=== PATIENT | female | born 1980 | race Hispanic/Latino ===

== ENCOUNTER 2017-05-18 10:33 | Emergency (ER) | payer MEDICAID ==
[2017-05-18 10:34] VITALS: BMI 24.5
[2017-05-18 11:41] VITALS: O2SAT 98
[2017-05-18] MEDS ORDERED: Sodium Chloride 0.9% 1,000 ML IV ONE (12:30)
--- NOTE | 2017-05-18 13:40 | ED PDOC ---
HPI: CCC, URI, Sore Throat Time Seen by Provider: 05/18/17 11:08 Chief Complaint (Nursing): Flu-like Symptoms Chief Complaint (Provider): Flu-like symptoms History Per: Patient History/Exam Limitations: no limitations Onset/Duration Of Symptoms: Days (x4) Current Symptoms Are (Timing): Still Present Associated Symptoms: Fever, Cough, Vomiting, Diarrhea, Other (runny nose) Ear Symptoms: Bilateral: None Additional Complaint(s): Nisha Sepulveda is a 36 year old female, with a past medical history of rheumatoid arthritis and asthma, who presents to the emergency department complaining of cough, runny nose, nausea, vomiting, and diarrhea onset for x4 days, and fever onset for x2 days. Patient had a max temperature of 102. No further medical complaints. PMD: None provided. Past Medical History Reviewed: Historical Data, Nursing Documentation, Vital Signs Vital Signs: Last Vital Signs Temp 97.9 F 05/18/17 15:31 Pulse 78 05/18/17 15:31 Resp 19 05/18/17 15:31 BP 126/78 05/18/17 15:31 Pulse Ox 98 05/18/17 15:31 - Medical History PMH: Asthma, Rheumatoid Arthritis Denies: Chronic Kidney Disease - Surgical History Surgical History: No Surg Hx - Family History Family History: States: Unknown Family Hx - Social History Current smoker - smoking cessation education provided: No Alcohol: None Drugs: Denies - Immunization History Hx Tetanus Toxoid Vaccination: No (not sure of last tetanus) - Home Medications Home Medications: Ambulatory Orders Medication Instructions Recorded Hydroxychloroquine Sulfate 200 mg PO DAILY 02/13/15 [Plaquenil] Oxycodone HCl/Acetaminophen 1 tab PO Q4 PRN 02/13/15 [Percocet 325 mg-5 mg] Prednisone 5 mg PO DAILY 02/13/15 Oxycodone HCl/Acetaminophen 1 tab PO Q6 PRN #10 tab 04/30/15 [Percocet 325 mg-5 mg] Prednisone 10 mg PO ASDIR #21 tablet 09/30/15 Fluticasone Nasal [Flonase] 2 spr NS DAILY #1 bottle 12/11/15 Metoclopramide HCl [Reglan] 10 mg PO QID PRN #30 tablet 04/12/16 Multivit/Folic Acid/I 1 tab PO DAILY #30 tab 04/12/16 [ Plus] Doxylamine/Pyridoxine HCl (B6) 2 tab PO HS #10 tablet. 06/08/16 [Jonny Briggs 10-10 mg Tablet] Oseltamivir Phosphate [Tamiflu] 75 mg PO BID #10 capsule 05/18/17 - Allergies Allergies/Adverse Reactions: Allergies Allergy/AdvReac Type Severity Reaction Status Date / Time No Known Allergies Allergy Verified 04/12/16 08:12 Review of Systems ROS Statement: Except As Marked, All Systems Reviewed And Found Negative Constitutional: Positive for: Fever ENT: Positive for: Nose Discharge Respiratory: Positive for: Cough Gastrointestinal: Positive for: Nausea, Vomiting, Diarrhea Physical Exam - Reviewed Nursing Documentation Reviewed: Yes Vital Signs Reviewed: Yes - Physical Exam Appears: Positive for: Non-toxic Head Exam: Positive for: ATRAUMATIC, NORMAL INSPECTION, NORMOCEPHALIC Skin: Positive for: Normal Color, Warm, Dry Eye Exam: Positive for: Normal appearance, EOMI, PERRL ENT: Positive for: Nasal Congestion, Other (throat is normal) Neck: Positive for: Painless ROM, Supple Cardiovascular/Chest: Positive for: Regular Rate, Rhythm. Negative for: Murmur Respiratory: Positive for: Normal Breath Sounds. Negative for: Respiratory Distress Gastrointestinal/Abdominal: Positive for: Normal Exam, Soft. Negative for: Tenderness, Guarding, Rebound Back: Positive for: Normal Inspection. Negative for: L CVA Tenderness, R CVA Tenderness, Vertebral Tenderness Extremity: Positive for: Normal ROM. Negative for: Deformity, Swelling Neurologic/Psych: Positive for: Alert, Oriented - ECG O2 Sat by Pulse Oximetry: 98 (RA) Pulse Ox Interpretation: Normal Medical Decision Making Medical Decision Making: Initial Impression: Viral syndrome, gastroenteritis Initial Plan: --Tylenol 325 mg tab 650 mg PO --Sodium Chloride 1,000 ml IV 999 mls/hr --Zofran Inj 4 mg IVP --Rapid Flu A/B [Influenza] --reevaluation 15:31 - Patient was hydrated in the ED with 2 L NS. She is tolerating PO fluids. She tested positive for Influenza and has a h/o RA with current meds so will tx with Tamiflu. Advised to follow up with primary care doctor in 1-2 days and to return to the ED if symptoms worsen or any other concern. Scribe Attestation: Documented by Toy Arciniega, acting as a scribe for Eliseo Lozada MD Provider Scribe Attestation: All medical record entries made by the Scribe were at my direction and personally dictated by me. I have reviewed the chart and agree that the record accurately reflects my personal performance of the history, physical exam, medical decision making, and the department course for this patient. I have also personally directed, reviewed, and agree with the discharge instructions and disposition. Disposition - Clinical Impression Clinical Impression: Influenza - Patient ED Disposition Is Patient to be Admitted: No - [facility] - Disposition Time: 15:25 Condition: FAIR Additional Instructions: Ms Royal Sepulveda, thank you for letting us take care of you today. Your provider was Dr. Lozada. You were treated for Viral Syndrome, Influenza. The emergency medical care you received today was directed at your acute symptoms. If you were prescribed any medication, please fill it and take as directed. It may take several days for your symptoms to resolve. Return to the Emergency Department if your symptoms worsen, do not improve, or if you have any other problems. Please contact your doctor or call one of the physicians/clinics you have been referred to that are listed on the Patient Visit Information form that is included in your discharge packet. Bring any paperwork you were given at discharge with you along with any medications you are taking to your follow up visit. Our treatment cannot replace ongoing medical care by a primary care provider (PCP) outside of the emergency department. Thank you for allowing the [facility] team to be part of your care today. If you had an X-Ray or CT scan: A Radiologist will review the ED reading if any change in treatment is needed we will contact you. If you had a blood, urine, or wound culture: It will take several days for the results, if any change in treatment is needed we will contact you. If you had an STI test: It will take 48 hours for the results. Please call after 1 week if you have not heard back. Prescriptions: Oseltamivir Phosphate [Tamiflu] 75 mg PO BID #10 capsule Instructions: Influenza (ED) Forms: [employer] (Bhutanese), [facility] ED School/Work Excuse
[2017-05-18] MEDS ORDERED: Sodium Chloride 0.9% 1,000 ML IV SCH (13:45)
[2017-05-18 15:32] VITALS: BP 126/78; PULSE 78; RESP 19; TEMP 97.9
== END 2017-05-18 15:32 | disposition home or self-care (01) ==
LOC: H.ER 10:33
DX: J11.1 Influenza due to unidentified influenza virus with other respiratory manifestations (principal); J45.909 Unspecified asthma, uncomplicated; M06.9 Rheumatoid arthritis, unspecified
CPT/HCPCS: 87804; 96374; 99282; J2405; J7040

== ENCOUNTER 2018-07-11 08:09 | Emergency (ER) | payer MEDICAID ==
[2018-07-11 08:14] VITALS: RESP 16; BMI 27.2
[2018-07-11] MEDS ORDERED: Sodium Chloride 0.9% 1,000 ML IV STA ×2 (08:32→10:39)
--- NOTE | 2018-07-11 08:36 | ED PDOC ---
HPI: Abdomen Time Seen by Provider: 07/11/18 08:15 Chief Complaint (Nursing): Abdominal Pain Chief Complaint (Provider): Abdominal Pain History Per: Patient History/Exam Limitations: no limitations Onset/Duration Of Symptoms: Days Current Symptoms Are (Timing): Still Present Associated Symptoms: Vomiting, Diarrhea. denies: Fever Additional Complaint(s): 37 year old female with a past medical history of rheumatoid arthritis who is presenting to the ED for evaluation of vomiting and diarrhea ongoing since last night. Patient states that she and her daughter went out and caught a stomach bug 2 days ago. She reports that she has had multiple episodes of non-bloody vomiting and diarrhea and is worried about dehydration. Patient denies any f zunilda or allergies to medications. She offers no other medical complaints at this time. PMD: none provided Past Medical History Reviewed: Historical Data, Nursing Documentation, Vital Signs Vital Signs: Last Vital Signs Temp 99.1 F 07/11/18 08:13 Pulse 102 H 07/11/18 08:13 Resp 16 07/11/18 08:13 BP 118/82 07/11/18 08:13 Pulse Ox 98 07/11/18 08:13 - Medical History PMH: Asthma, Rheumatoid Arthritis Denies: Chronic Kidney Disease - Surgical History Other surgeries: Dilation and curettage, Kidney stone removal - Family History Family History: States: Unknown Family Hx - Social History Current smoker - smoking cessation education provided: No Alcohol: None Drugs: Denies - Immunization History Hx Tetanus Toxoid Vaccination: No (not sure of last tetanus) - Home Medications Home Medications: Ambulatory Orders Medication Instructions Recorded Hydroxychloroquine Sulfate 200 mg PO DAILY 02/13/15 [Plaquenil] Oxycodone HCl/Acetaminophen 1 tab PO Q4 PRN 02/13/15 [Percocet 325 mg-5 mg] Prednisone 5 mg PO DAILY 02/13/15 Oxycodone HCl/Acetaminophen 1 tab PO Q6 PRN #10 tab 04/30/15 [Percocet 325 mg-5 mg] Prednisone 10 mg PO ASDIR #21 tablet 09/30/15 Fluticasone Nasal [Flonase] 2 spr NS DAILY #1 bottle 12/11/15 Metoclopramide HCl [Reglan] 10 mg PO QID PRN #30 tablet 04/12/16 Multivit/Folic Acid/I 1 tab PO DAILY #30 tab 04/12/16 [ Plus] Doxylamine/Pyridoxine HCl (B6) 2 tab PO HS #10 tablet. 06/08/16 [Jonny Briggs 10-10 mg Tablet] Oseltamivir Phosphate [Tamiflu] 75 mg PO BID #10 capsule 05/18/17 Ondansetron ODT [Zofran ODT] 4 mg PO Q6 #30 odt 07/11/18 - Allergies Allergies/Adverse Reactions: Allergies Allergy/AdvReac Type Severity Reaction Status Date / Time No Known Allergies Allergy Verified 04/12/16 08:12 Review of Systems ROS Statement: Except As Marked, All Systems Reviewed And Found Negative Constitutional: Negative for: Fever Gastrointestinal: Positive for: Vomiting, Diarrhea Physical Exam - Reviewed Nursing Documentation Reviewed: Yes Vital Signs Reviewed: Yes - Physical Exam Appears: Positive for: Non-toxic, No Acute Distress Head Exam: Positive for: ATRAUMATIC, NORMAL INSPECTION, NORMOCEPHALIC Skin: Positive for: Normal Color, Warm, DRY Eye Exam: Positive for: EOMI, Normal appearance, PERRL ENT: Positive for: Other (lips and mucous membranes dry ) Cardiovascular/Chest: Positive for: Regular Rate, Rhythm. Negative for: Murmur Respiratory: Positive for: Normal Breath Sounds. Negative for: Respiratory Distress Gastrointestinal/Abdominal: Positive for: Normal Exam, Soft. Negative for: Tenderness Back: Positive for: Normal Inspection. Negative for: L CVA Tenderness, R CVA Tenderness Extremity: Positive for: Normal ROM. Negative for: Deformity, Swelling Neurological/Psych: Positive for: Awake, Alert, Normal Tone, Oriented. Negative for: Motor/Sensory Deficits - Laboratory Results Result Diagrams: 07/11/18 08:40 07/11/18 08:40 - ECG O2 Sat by Pulse Oximetry: 98 (RA) Pulse Ox Interpretation: Normal Medical Decision Making Medical Decision Making: Time: 8:35 A/P: gastroenteritis, workup for dehydration/electrolyte abnormality --IV Fluids --Zofran --Reassess patient Scribe Attestation: Documented by Marcela Garcia, acting as a scribe for Tonia Chavis MD. Provider Scribe Attestation: All medical record entries made by the Scribe were at my direction and personally dictated by me. I have reviewed the chart and agree that the record accurately reflects my personal performance of the history, physical exam, medical decision making, and the department course for this patient. I have also personally directed, reviewed, and agree with the discharge instructions and disposition. Disposition - Clinical Impression Clinical Impression: Gastroenteritis - Disposition Disposition: Routine/Home Disposition Time: 12:40 Condition: IMPROVED Additional Instructions: Follow up with primary medical doctor. Return to the emergency department if you develop worsened symptoms. Take Zofran as needed for nausea. Prescriptions: Ondansetron ODT [Zofran ODT] 4 mg PO Q6 #30 odt Instructions: Gastroenteritis (ED) Forms: [employer] (Turkish) Print Language: [place]
[2018-07-11 08:49] LABS: BASO % 0.4 % (0.0-2.0); EOS % 0.3 % (0.0-4.0); LYMPH # 0.6 K/uL (1.0-4.3); LYMPH % 6.4 % (20.0-40.0); MEAN CELL VOLUME 90.2 fl (81.0-99.0); MEAN CORPUSCULAR HEMOGLOBIN 30.6 pg (27.0-31.0); MEAN CORPUSCULAR HGB CONC 33.9 g/dL (33.0-37.0); MEAN PLATELET VOLUME 9.2 fl (7.2-11.7); MONO # 0.2 K/uL (0.0-0.8); NEUT # 7.9 K/uL (1.8-7.0); NEUT % 90.9 % (50.0-75.0); PLATELET COUNT 210 K/uL (130-400); RBC 4.57 Mil/uL (3.80-5.20); RED CELL DISTRIBUTION WIDTH 13.5 % (11.5-14.5); WHITE BLOOD COUNT 8.6 K/uL (4.8-10.8)
[2018-07-11 08:53] LABS: SQUAMOUS EPITHIAL 14 /hpf (0-5); URINE AMORPHOUS SEDIMENT RARE /ul (<OCC); URINE BILIRUBIN SMALL (NEGATIVE); URINE BLOOD SMALL (NEGATIVE); URINE CLARITY CLOUDY (Clear); URINE COLOR AMBER (YELLOW); URINE GLUCOSE (UA) NEG (NEGATIVE); URINE LEUKOCYTE ESTERASE SMALL Leu/uL (Negative); URINE PROTEIN 100 mg/dL (NEGATIVE); URINE UROBILINOGEN 0.2-1.0 mg/dL (0.2-1.0)
[2018-07-11 08:59] LABS: ALB/GLOB RATIO 1.2 (1.0-2.1); ALBUMIN 4.5 g/dL (3.5-5.0); ALT/SGPT 27 U/L (9-52); AST/SGOT 25 U/L (14-36); BLOOD UREA NITROGEN 15 mg/dl (7-17); CALCIUM 9.3 mg/dL (8.4-10.2); GFR NON-AFRICAN AMERICAN > 60; LIPASE 64 U/L (23-300)
[2018-07-11 10:49] LABS: BANDS 1 % (0-2); LYMPHOCYTE 6 % (20-50); MONOCYTE 1 % (0-10); NEUTROPHIL 92 % (42-75); TOTAL CELLS COUNTED 100
[2018-07-11 10:50] LABS: PLATELET ESTIMATE NORMAL (NORMAL)
[2018-07-11 13:28] VITALS: BP 110/70; PULSE 76; TEMP 98.8
[2018-07-22 10:22] VITALS: O2SAT 98
== END 2018-07-11 12:45 | disposition home or self-care (01) ==
LOC: H.ER 08:09
DX: K52.9 Noninfective gastroenteritis and colitis, unspecified (principal); J45.909 Unspecified asthma, uncomplicated; M06.9 Rheumatoid arthritis, unspecified
CPT/HCPCS: 80053; 81003; 83690; 85025; 96361; 96374; 96375; 99283; J1885; J2405; J7030